=== PATIENT | male | born 1950 ===

== ENCOUNTER 2018-06-14 22:12 | Inpatient (IN) | payer BC, MEDICARE ==
[2018-06-14 22:12] VITALS: BMI 23.6
--- NOTE | 2018-06-14 22:29 | C.PDOC ---
History Of Present Illness 68 year old male with a PMHx of diabetes presents to the ED accompanied by son, for evaluation of dizziness for 3 days. Patient reports feeling dizzy when he stands up, which improves at rest. He also complains of a dry cough. Denies any fevers, chills, chest pain, SOB, headaches, visual loss, nausea or vomiting. He notes that a few days ago he was dizzy and fell onto his left hip. He has no hip pain or other reported injury. Denies LOC or head trauma. No known sick contacts. No recent travel. Son reports that family has noticed patient becoming confused recently - this morning for example, patient got ready for work however had no work today. Time Seen by Provider: 06/14/18 22:20 Chief Complaint (Nursing): Dizziness/Lightheaded History Per: Patient History/Exam Limitations: no limitations Onset/Duration Of Symptoms: Days (x 3) Current Symptoms Are (Timing): Still Present Activity At Onset Of Symptoms: Exertional Activity Seizure Or Post-ictal Symptoms: None Fall Associated With With Symptoms: Yes, No Injury As Result Of Fall Past Medical History Reviewed: Historical Data, Nursing Documentation, Vital Signs Vital Signs: Last Vital Signs Temp 98.1 F 06/14/18 22:19 Pulse 109 H 06/14/18 22:19 Resp 22 06/14/18 22:19 BP 142/81 06/14/18 22:19 Pulse Ox 96 06/14/18 22:19 - Medical History PMH: Benign Prostatic Hyperplasia, Diabetes, HTN - [facility] Procedures INSERT INDWELLING CATH (06/03/13) SUPRAPUBIC PROSTATECTOMY (06/07/13) Family History: States: Unknown Family Hx - Social History Hx Tobacco Use: No Hx Alcohol Use: No Hx Substance Use: No - Immunization History Hx Tetanus Toxoid Vaccination: Yes Hx Influenza Vaccination: No Hx Pneumococcal Vaccination: No Review Of Systems Except As Marked, All Systems Reviewed And Found Negative. Constitutional: Negative for: Fever, Chills, Sweats Eyes: Negative for: Vision Change Cardiovascular: Negative for: Chest Pain, Palpitations Respiratory: Positive for: Cough. Negative for: Shortness of Breath, Sputum Gastrointestinal: Negative for: Nausea, Vomiting Musculoskeletal: Negative for: Neck Pain, Back Pain Neurological: Positive for: Confusion, Dizziness. Negative for: Weakness, Numbness, Change in Speech, Headache Physical Exam - Physical Exam Appears: Well, Non-toxic, No Acute Distress Skin: Normal Color, Warm Head: Atraumatic, Normacephalic Eye(s): bilateral: Normal Inspection (no nystagmus), PERRL, EOMI Oral Mucosa: Moist Neck: Normal ROM, Supple Chest: Symmetrical Cardiovascular: Rhythm Regular (but Tachycardic), Other (Normal S1, S2) Respiratory: No Accessory Muscle Use, No Rales, Rhonchi (diffuse), No Wheezing Gastrointestinal/Abdominal: Soft, No Tenderness, No Distention Extremity: Bilateral: Atraumatic, No Pedal Edema, Normal ROM (x4) Pulses: Left Dorsalis Pedis: Normal, Right Dorsalis Pedis: Normal Neurological/Psych: Oriented x3, Normal Speech, Normal Cognition, Normal Cranial Nerves (2-12 intact), Normal Motor, Normal Sensation Gait: Steady ED Course And Treatment - Laboratory Results Result Diagrams: 06/14/18 22:53 06/14/18 22:53 ECG: Interpreted By Me, Viewed By Me ECG Rhythm: Sinus Tachycardia Interpretation Of ECG: Normal intervals, normal axis, no ST elevations or d epressions Rate From EC O2 Sat by Pulse Oximetry: 96 (RA) Pulse Ox Interpretation: Normal Medical Decision Making Medical Decision Making: Impression: Dizziness Plan: --Blood work, troponin --Blood culture --Urinalysis --Chest x-ray --1L IV fluids --O2 via nasal cannula Progress/Updates: 23:[address] Youssef, who accepts patient for admission. Disposition Counseled Patient/Family Regarding: Studies Performed, Diagnosis - Disposition Disposition: HOSPITALIZED Disposition Time: 23:47 Condition: STABLE - Clinical Impression Clinical Impression: Dizziness, Pneumonia - Scribe Statement The provider has reviewed the documentation as recorded by the Nickolas Lawrence Provider Attestation: All medical record entries made by the Nickolas were at my direction and personally dictated by me. I have reviewed the chart and agree that the record accurately reflects my personal performance of the history, physical exam, medical decision making, and the department course for this patient. I have also personally directed, reviewed, and agree with the discharge instructions and disposition.
[2018-06-14] MEDS ORDERED: Sodium Chloride 0.9% 1,000 ML IV ONE (22:36)
[2018-06-14] MEDS ORDERED: Sodium Chloride 0.9% 1,000 ML ONE (22:56)
[2018-06-14 23:09] LABS: ALB/GLOB RATIO 1.4 (1.0-2.1); ALBUMIN 4.9 g/dL (3.5-5.0); ALT/SGPT 21 U/L (21-72); AST/SGOT 30 U/L (17-59); BLOOD UREA NITROGEN 15 mg/dL (9-20); CALCIUM 9.2 mg/dl (8.6-10.4); GFR NON-AFRICAN AMERICAN > 60
[2018-06-14 23:12] LABS: BASO % 0.3 % (0.0-2.0); HEMOGLOBIN 16.2 g/dL (12.0-18.0); LYMPH # 1.1 K/uL (1.0-4.3); LYMPH % 9.1 % (20.0-40.0); MEAN CELL VOLUME 90.8 fL (80.0-94.0); MEAN CORPUSCULAR HEMOGLOBIN 31.6 pg (27.0-31.0); MEAN CORPUSCULAR HGB CONC 34.8 g/dL (33.0-37.0); MEAN PLATELET VOLUME 8.4 fL (7.2-11.7); MONO # 1.5 K/uL (0.0-0.8); MONO % 12.3 % (0.0-10.0); NEUT # 9.3 K/uL (1.8-7.0); NEUT % 78.3 % (50.0-75.0); NRBC % 0.1 % (0.0-2.0); PLATELET COUNT 274 K/uL (130-400); RBC 5.11 Mil/uL (4.40-5.90); RED CELL DISTRIBUTION WIDTH 12.9 % (11.5-14.5); WHITE BLOOD COUNT 11.9 K/uL (4.8-10.8)
[2018-06-14 23:23] LABS: PLATELET ESTIMATE NORMAL (NORMAL)
[2018-06-14 23:35] LABS: ANISOCYTOSIS SLIGHT; BANDS 9 % (0-2); HYPOCHROMIC SLIGHT; LYMPHOCYTE 9 % (20-40); MONOCYTE 10 % (0-10); NEUTROPHIL 72 % (50-75); POIKILOCYTOSIS SLIGHT; TOTAL CELLS COUNTED 100
[2018-06-14 23:36] LABS: HYPERSEGMENTATION PRESENT; LARGE PLATELETS PRESENT; SMUDGE CELLS PRESENT; SPHEROCYTES SLIGHT
[2018-06-14] MEDS ORDERED: Azithromycin 500mg/250ML NS 500 MG/250 ML BAG IVPB STA (23:43)
[2018-06-15] MEDS ORDERED: Azithromycin 500mg/250ML NS 500 MG/250 ML BAG IVPB ONE (00:16)
[2018-06-15] MEDS ORDERED: cefTRIAXone IV 1 gm in Dextros 50 ML IVPB STA (00:16)
[2018-06-15] MEDS ORDERED: Dextrose 50% SYRINGE Inj (50 ml) IV PRN (00:18)
[2018-06-15] MEDS ORDERED: Glucagon Recombinant 1 mg Inj IM PRN (00:18)
[2018-06-15] MEDS ORDERED: Albuterol-Ipratrop 3 mg / 0.5 (3 ml) UD INH PRN (00:20)
[2018-06-15] MEDS ORDERED: Promethazine 6.25 MG/5 ML CUP PO PRN (00:20)
[2018-06-15] MEDS: Azithromycin 500 MG in Sodium Chloride 0.9% 250 ML IVPB SCH ×2 (00:44→23:57)
[2018-06-15] MEDS: (Novolog) Insulin Aspart, Recombinant 100 u/ml 10 ml vial SC SCH ×4 (07:40→21:34)
--- NOTE | 2018-06-15 08:27 | CP.PCM.HP ---
History of Present Illness - History of Present Illness History of Present Illness: Chief complaint: Cough and wheezing HPI: 68-year-old male with a history of diabetes came to the emergency room with the symptoms of dizziness for 3 days duration. He is started feeling dizzy while he standing up, and sometimes even at rest it started having. Patient also had episodes of dry cough. Chills noted. He denied any fever, no shortness of breath. Denies any headache. While he was in the emergency room patient was also having episode of high blood pressure and tachycardia. Patient is very compliant with the medications. Past medical history: BPH, diabetes and hypertension Allergy no known drug allergy Personal history: Patient used to be a smoker in the past. Denies any alcohol. Lives with family members. Surgical history none Family history significant for high blood pressure and heart disease Review of system: Patient is having some headache. Minimal dry cough noted. Dizziness present. Low blood sugar this morning noted. No chest pain. On examination: Vital signs are stable otherwise. Mild tachycardia noted. Saturation is 93% in room air Chest good air entry No wheezing noted Regular heart sounds noted Abdomen soft. 1+ pedal edema bilaterally in the legs noted. No calf tenderness noted Patient's labs reviewed Elevated WBC noted Chemistries normal. Blood sugar is on the low side EKG nonspecific tachycardia noted Chest x-ray left lower lung atelectatic changes Assessment and recommendation: 68-year-old male with a history of diabetes hypertension high cholesterol. Admitted with dizziness and tachycardia. Underlying DVT PE cannot be ruled out. Suggested CT scan of the chest with IV contrast Presumptive diagnosis of CAP, on antibiotic. DVT and GI prophylaxis. Glucose monitoring. Neurological, cardiology evaluation and will follow the patient Present on Admission - Present on Admission Any Indicators Present on Admission: No History of DVT/PE: No History of Uncontrolled Diabetes: No Urinary Catheter: No Decubitus Ulcer Present: No Past Patient History - Past Medical History & Family History Past Medical History?: Yes - Past Social History Smoking Status: Never Smoked - CARDIAC Hx Hypertension: Yes - PULMONARY Hx Respiratory Disorders: No - NEUROLOGICAL Hx Neurological Disorder: No - HEENT Hx HEENT Problems: No - RENAL Hx Chronic Kidney Disease: No - ENDOCRINE/METABOLIC Hx Endocrine Disorders: Yes Hx Diabetes Mellitus Type 2: Yes - HEMATOLOGICAL/ONCOLOGICAL Hx Blood Disorders: No - INTEGUMENTARY Hx Dermatological Problems: No - MUSCULOSKELETAL/RHEUMATOLOGICAL Hx Musculoskeletal Disorders: Yes Hx Falls: Yes - GASTROINTESTINAL Hx Gastrointestinal Disorders: No - GENITOURINARY/GYNECOLOGICAL Hx Genitourinary Disorders: No - PSYCHIATRIC Hx Substance Use: No - SURGICAL HISTORY Hx Surgeries: Yes Other/Comment: prostate - ANESTHESIA Hx Anesthesia: Yes Hx Anesthesia Reactions: No Hx Malignant Hyperthermia: No Has any member of the family had a problem w/ anesthesia?: No Meds Allergies/Adverse Reactions: Allergies Allergy/AdvReac Type Severity Reaction Status Date / Time No Known Allergies Allergy Verified 06/14/18 22:24 Results - Vital Signs Recent Vital Signs: Last Vital Signs Temp 97.8 F 06/15/18 07:00 Pulse 82 06/15/18 07:00 Resp 20 06/15/18 07:00 BP 134/77 06/15/18 07:00 Pulse Ox 96 06/15/18 07:00 - Labs Result Diagrams: 06/14/18 22:53 06/14/18 22:53 Labs: Laboratory Results - last 24 hr 06/14/18 06/14/18 06/14/18 22:16 22:53 22:53 WBC 11.9 H RBC 5.11 Hgb 16.2 D Hct 46.4 MCV 90.8 MCH 31.6 H MCHC 34.8 RDW 12.9 Plt Count 274 MPV 8.4 Neut % (Auto) 78.3 H Lymph % (Auto) 9.1 L [place] % (Auto) 12.3 H Eos % (Auto) 0.0 Baso % (Auto) 0.3 Neut # (Auto) 9.3 H Lymph # (Auto) 1.1 [place] # (Auto) 1.5 H Eos # (Auto) 0.0 Baso # (Auto) 0.0 Neutrophils % (Manual) 72 Band Neutrophils % 9 H Lymphocytes % (Manual) 9 L Monocytes % (Manual) 10 Hypersegmented Polys Present Smudge Cells Present Platelet Estimate Normal Large Platelets Present Hypochromasia (manual) Slight Poikilocytosis (manual Slight Anisocytosis (manual) Slight Spherocytes Slight Sodium 137 Potassium 4.0 Chloride 100 Carbon Dioxide 26 Anion Gap 16 BUN 15 Creatinine 0.8 Est GFR ( Amer) > 60 Est GFR (Non-Af Amer) > 60 POC Glucose (mg/dL) 107 Random Glucose 111 H D Calcium 9.2 Total Bilirubin 0.8 AST 30 ALT 21 D Alkaline Phosphatase 51 Troponin I < 0.0120 Total Protein 8.2 Albumin 4.9 Globulin 3.4 Albumin/Globulin Ratio 1.4 06/15/18 06/15/18 06/15/18 06:53 06:55 07:17 WBC RBC Hgb Hct MCV MCH MCHC RDW Plt Count MPV Neut % (Auto) Lymph % (Auto) [place] % (Auto) Eos % (Auto) Baso % (Auto) Neut # (Auto) Lymph # (Auto) [place] # (Auto) Eos # (Auto) Baso # (Auto) Neutrophils % (Manual) Band Neutrophils % Lymphocytes % (Manual) Monocytes % (Manual) Hypersegmented Polys Smudge Cells Platelet Estimate Large Platelets Hypochromasia (manual) Poikilocytosis (manual Anisocytosis (manual) Spherocytes Sodium Potassium Chloride Carbon Dioxide Anion Gap BUN Creatinine Est GFR ( Amer) Est GFR (Non-Af Amer) POC Glucose (mg/dL) 57 L 57 L 87 Random Glucose Calcium Total Bilirubin AST ALT Alkaline Phosphatase Troponin I Total Protein Albumin Globulin Albumin/Globulin Ratio
[2018-06-15] MEDS ORDERED: Dextrose 5%/0.9% NS 1,000 ML IV ONE (09:00)
--- NOTE | 2018-06-15 09:09 | RAD ---
Date of service: 06/14/2018 HISTORY: Pneumonia COMPARISON: Portable chest 06/09/2013. TECHNIQUE: Chest PA and lateral FINDINGS: LUNGS: Diminishing medial basilar airspace disease. Linear atelectasis identified in the medial left base. PLEURA: No significant pleural effusion identified. No pneumothorax apparent. CARDIOVASCULAR: No aortic atherosclerotic calcification present. Normal cardiac size. No pulmonary vascular congestion. OSSEOUS STRUCTURES: No significant abnormalities. VISUALIZED UPPER ABDOMEN: Normal. OTHER FINDINGS: None. IMPRESSION: Diminishing airspace disease at the right base with limited remaining at the right. Linear atelectasis is increased at the left base medially.
[2018-06-15] MEDS ORDERED: Iodixanol 320 MG/ML 100 ML BOTTLE IV ONE (09:13)
--- NOTE | 2018-06-15 09:38 | CT ---
Date of service: 06/15/2018 PROCEDURE: CT HEAD WITHOUT CONTRAST. HISTORY: dizziness COMPARISON: None available. TECHNIQUE: Axial computed tomography images were obtained through the head/brain without intravenous contrast. Radiation dose: Total exam DLP = 922.45 mGy-cm. This CT exam was performed using one or more of the following dose reduction techniques: Automated exposure control, adjustment of the mA and/or kV according to patient size, and/or use of iterative reconstruction technique. FINDINGS: HEMORRHAGE: No intracranial hemorrhage. BRAIN: No mass effect or edema. Scattered focal lucencies in the subcortical and periventricular white matter suggestive for chronic microvascular ischemic change. Left basal ganglia lacunar infarct. Cerebral and cerebellar atrophy. VENTRICLES: Unremarkable. No hydrocephalus. CALVARIUM: Unremarkable. PARANASAL SINUSES: Mild mucosal thickening of the ethmoid air cells. Mild mucosal thickening of the left maxillary sinus. MASTOID AIR CELLS: Unremarkable as visualized. No inflammatory changes. OTHER FINDINGS: None. IMPRESSION: Chronic microvascular ischemic changes. Left basal ganglia lacunar infarct. Cerebral and cerebellar atrophy. Sinus mucosal disease as above. If symptoms persists, consider correlation with MRI.
[2018-06-15 11:26] LABS: INR 1.2; PROTHROMBIN TIME 12.7 SECONDS (9.7-12.2)
[2018-06-15 11:40] LABS: CK-MB 1.46 ng/mL (0.0-3.38)
--- NOTE | 2018-06-15 12:43 | CT ---
Date of service: 06/15/2018 CTA chest PE protocol Indication: Pneumonia Technique: Contiguous axial images were obtained through the chest with intravenous contrast enhancement. Sagittal and coronal reconstructions were generated and reviewed. This CT exam was performed using 1 or more of the following dose reduction techniques: Automated exposure control, adjustment of the MAA and/or kV according to patient size, and/or use of iterative reconstruction technique. IV contrast: 100 mL Visipaque 320 IV Radiation dose (DLP): 469.42 MGy-cm. Comparison: Chest x-ray performed 06/14/18 Findings: Visualized portions of the inferior thyroid gland appear heterogeneous. The mediastinal and hilar vascular structures appear within normal limits. Cardiomegaly. Coronary artery calcifications. Atherosclerotic calcifications of the aorta. No large central or segmental pulmonary embolus evident. Subsegmental vessels cannot be adequately assessed. Patchy bilateral infiltrates. No pleural effusion. No pneumothorax. 3 mm right lower lobe calcified granuloma. Limited visualized portions of the upper abdomen: Bilateral adrenal hypertrophy. Degenerative changes. Impression: No large central or segmental pulmonary embolus. Subsegmental vessels cannot be adequately assessed. Patchy bilateral infiltrates. Heterogeneous appearance of the limited visualized inferior thyroid gland. Bilateral adrenal gland hypertrophy. Additional findings as above.
--- NOTE | 2018-06-15 13:57 | CP.PCM.CON ---
<Taylor Christie - Last Filed: 06/15/18 17:09> History of Present Illness - History of Present Illness History of Present Illness: Cardiology Consult Note for Dr. Oneal: 68 year old male with past medical history of HTN, Diabetes and BPH presented to the ER on 06/14/18 for dizziness. Patient states he was getting home from work when he felt dizzy. He states he was walking up to his apartment and had to hold onto the railing and he fell. He denies hitting his head. He states he picked himself up and went into his apartment. He states when he arrived to his apartment he made himself something to eat. He states he had not eaten anything all day but he had taken his insulin. Patient states this is the first time he had the dizziness. Patient denies chest pain, palpitations, shortness of breath, nausea, vomiting, diarrhea or constipation. Past Medical History: HTN, Diabetes Type II on Insulin, BPH Medications: MAR Allergies: NKDA Family History: HTN and heart disease Social History: quit smoking in 1991 (smoked for 20 years about 1ppd); denies alcohol and illicit drug use; lives with cousin Review of Systems - Constitutional Constitutional: absent: Chills, Fever - EENT Eyes: absent: Blurred Vision Ears: Dizziness - Cardiovascular Cardiovascular: absent: Chest Pain, Chest Pain at Rest, Chest Pain with Activity, Dyspnea, Edema, Leg Edema, Palpitations, Pedal Edema - Respiratory Respiratory: absent: Cough, Dyspnea - Gastrointestinal Gastrointestinal: absent: Constipation, Diarrhea, Heartburn, Vomiting - Genitourinary Genitourinary: absent: Dysuria - Musculoskeletal Musculoskeletal: absent: Numbness, Tingling - Neurological Neurological: Dizziness, Syncope Past Patient History - Past Medical History & Family History Past Medical History?: Yes - Past Social History Smoking Status: Never Smoked - CARDIAC Hx Hypertension: Yes - PULMONARY Hx Respiratory Disorders: No - NEUROLOGICAL Hx Neurological Disorder: No - HEENT Hx HEENT Problems: No - RENAL Hx Chronic Kidney Disease: No - ENDOCRINE/METABOLIC Hx Endocrine Disorders: Yes Hx Diabetes Mellitus Type 2: Yes - HEMATOLOGICAL/ONCOLOGICAL Hx Blood Disorders: No - INTEGUMENTARY Hx Dermatological Problems: No - MUSCULOSKELETAL/RHEUMATOLOGICAL Hx Musculoskeletal Disorders: Yes Hx Falls: Yes - GASTROINTESTINAL Hx Gastrointestinal Disorders: No - GENITOURINARY/GYNECOLOGICAL Hx Genitourinary Disorders: No - PSYCHIATRIC Hx Substance Use: No - SURGICAL HISTORY Hx Surgeries: Yes Other/Comment: prostate - ANESTHESIA Hx Anesthesia: Yes Hx Anesthesia Reactions: No Hx Malignant Hyperthermia: No Has any member of the family had a problem w/ anesthesia?: No Meds Allergies/Adverse Reactions: Allergies Allergy/AdvReac Type Severity Reaction Status Date / Time No Known Allergies Allergy Verified 06/14/18 22:24 - Medications Medications: Current Medications Albuterol/Ipratropium (Duoneb 3 Mg/0.5 Mg (3 Ml) Ud) 3 ml INH RQ8 PRN PRN Reason: cough/wheezing/sob Dextrose (Dextrose 50% Inj) 0 ml IV STAT PRN; Protocol PRN Reason: Hypoglycemia Protocol Dextrose (Glutose 15) 0 gm PO ONCE PRN; Protocol PRN Reason: Hypoglycemia Protocol Famotidine (Pepcid) 20 mg PO DAILY [facility] Last Admin: 06/15/18 10:51 Dose: 20 mg Glucagon (Glucagen Diagnostic Kit) 0 mg IM STAT PRN; Protocol PRN Reason: Hypoglycemia Protocol Heparin Sodium (Porcine) (Heparin) 5,000 units SC Q8 [facility] Last Admin: 06/15/18 05:21 Dose: 5,000 units Azithromycin 500 mg/ Sodium (Chloride) 250 mls @ 250 mls/hr IVPB Q24H JOANN; Protocol Last Admin: 06/15/18 00:44 Dose: 250 mls/hr Ceftriaxone Sodium 1 gm/ (Sodium Chloride) 100 mls @ 100 mls/hr IVPB DAILY [facility]; Protocol Last Admin: 06/15/18 10:51 Dose: 100 mls/hr Dextrose (Dextrose 5% In Water 1000 Ml) 1,000 mls @ 0 mls/hr IV .Q0M PRN; Protocol PRN Reason: Hypoglycemia Protocol Dextrose/Sodium Chloride (Dextrose 5%/0.9% Ns 1000 Ml) 1,000 mls @ 75 mls/hr IV .[id number] ONE Stop: 06/15/18 22:19 Last Admin: 06/15/18 10:56 Dose: 75 mls/hr Influenza Virus Vaccine (Flucelvax Quad [id number] Syr) 60 mcg IM .ONCE ONE Stop: 06/17/18 12:01 Insulin Aspart (Novolog) 0 unit SC ACHS JOANN; Protocol Last Admin: 06/15/18 12:17 Dose: Not Given Pneumococcal Polyvalent Vaccine (Pneumovax 23 Vaccine) 0.5 ml IM .ONCE ONE Stop: 06/17/18 12:01 Promethazine HCl (Phenergan Syrup) 6.25 mg PO Q6 PRN PRN Reason: Cough Physical Exam - Constitutional Appears: Well, Non-toxic, No Acute Distress - Head Exam Head Exam: ATRAUMATIC, NORMAL INSPECTION - Eye Exam Eye Exam: EOMI, Normal appearance - ENT Exam ENT Exam: Mucous Membranes Moist - Respiratory Exam Respiratory Exam: Clear to Auscultation Bilateral, NORMAL BREATHING PATTERN - Cardiovascular Exam Cardiovascular Exam: REGULAR RHYTHM, +S1, +S2 - GI/Abdominal Exam GI & Abdominal Exam: Normal Bowel Sounds, Soft. absent: Tenderness - Extremities Exam Extremities exam: Positive for: normal inspection. Negative for: pedal edema, tenderness - Neurological Exam Neurological exam: Alert, Oriented x3 - Psychiatric Exam Psychiatric exam: Normal Affect, Normal Mood - Skin Skin Exam: Normal Color Results - Vital Signs Recent Vital Signs: Last Vital Signs Temp 97.8 F 06/15/18 07:00 Pulse 75 06/15/18 12:00 Resp 20 06/15/18 07:00 BP 134/77 06/15/18 07:00 Pulse Ox 96 06/15/18 07:00 - Labs Result Diagrams: 06/14/18 22:53 06/14/18 22:53 Labs: Laboratory Results - last 24 hr 06/14/18 06/14/18 06/14/18 22:16 22:53 22:53 WBC 11.9 H RBC 5.11 Hgb 16.2 D Hct 46.4 MCV 90.8 MCH 31.6 H MCHC 34.8 RDW 12.9 Plt Count 274 MPV 8.4 Neut % (Auto) 78.3 H Lymph % (Auto) 9.1 L Coles % (Auto) 12.3 H Eos % (Auto) 0.0 Baso % (Auto) 0.3 Neut # (Auto) 9.3 H Lymph # (Auto) 1.1 Coles # (Auto) 1.5 H Eos # (Auto) 0.0 Baso # (Auto) 0.0 Neutrophils % (Manual) 72 Band Neutrophils % 9 H Lymphocytes % (Manual) 9 L Monocytes % (Manual) 10 Hypersegmented Polys Present Smudge Cells Present Platelet Estimate Normal Large Platelets Present Hypochromasia (manual) Slight Poikilocytosis (manual Slight Anisocytosis (manual) Slight Spherocytes Slight PT INR APTT Sodium 137 Potassium 4.0 Chloride 100 Carbon Dioxide 26 Anion Gap 16 BUN 15 Creatinine 0.8 Est GFR ( Amer) > 60 Est GFR (Non-Af Amer) > 60 POC Glucose (mg/dL) 107 Random Glucose 111 H D Calcium 9.2 Total Bilirubin 0.8 AST 30 ALT 21 D Alkaline Phosphatase 51 Total Creatine Kinase CK-MB (Mass) Troponin I < 0.0120 Total Protein 8.2 Albumin 4.9 Globulin 3.4 Albumin/Globulin Ratio 1.4 06/15/18 06/15/18 06/15/18 06:53 06:55 07:17 WBC RBC Hgb Hct MCV MCH MCHC RDW Plt Count MPV Neut % (Auto) Lymph % (Auto) Coles % (Auto) Eos % (Auto) Baso % (Auto) Neut # (Auto) Lymph # (Auto) Coles # (Auto) Eos # (Auto) Baso # (Auto) Neutrophils % (Manual) Band Neutrophils % Lymphocytes % (Manual) Monocytes % (Manual) Hypersegmented Polys Smudge Cells Platelet Estimate Large Platelets Hypochromasia (manual) Poikilocytosis (manual Anisocytosis (manual) Spherocytes PT INR APTT Sodium Potassium Chloride Carbon Dioxide Anion Gap BUN Creatinine Est GFR ( Amer) Est GFR (Non-Af Amer) POC Glucose (mg/dL) 57 L 57 L 87 Random Glucose Calcium Total Bilirubin AST ALT Alkaline Phosphatase Total Creatine Kinase CK-MB (Mass) Troponin I Total Protein Albumin Globulin Albumin/Globulin Ratio 06/15/18 06/15/18 06/15/18 11:02 11:02 11:24 WBC RBC Hgb Hct MCV MCH MCHC RDW Plt Count MPV Neut % (Auto) Lymph % (Auto) Coles % (Auto) Eos % (Auto) Baso % (Auto) Neut # (Auto) Lymph # (Auto) Coles # (Auto) Eos # (Auto) Baso # (Auto) Neutrophils % (Manual) Band Neutrophils % Lymphocytes % (Manual) Monocytes % (Manual) Hypersegmented Polys Smudge Cells Platelet Estimate Large Platelets Hypochromasia (manual) Poikilocytosis (manual Anisocytosis (manual) Spherocytes PT 12.7 H INR 1.2 APTT 37 H Sodium Potassium Chloride Carbon Dioxide Anion Gap BUN Creatinine Est GFR ( Amer) Est GFR (Non-Af Amer) POC Glucose (mg/dL) 215 H Random Glucose Calcium Total Bilirubin AST ALT Alkaline Phosphatase Total Creatine Kinase 360 H CK-MB (Mass) 1.46 Troponin I < 0.0120 Total Protein Albumin Globulin Albumin/Globulin Ratio Assessment & Plan - Assessment and Plan (Free Text) Assessment: 68 year old male with past medical history of HTN, Diabetes and BPH presented to the ER on 06/14/18 for dizziness. Dizziness possibly secondary to hypoglycemia - Trop x2 negative - f/u Lipid panel ad hA1c - ECHO (06/15/18): reviewed by Dr. Oneal - normal LV function; mild - CT Angio: No large central or segmental pulmonary embolus. - Carotid Doppler: Negative - Head CT: Chronic microvascular ischemic changes. Left basal ganglia lacunar infarct. Cerebral and cerebellar atrophy. - Neuro Team Consulted - Meera Stress Test scheduled for 06/16/18 - NPO after midnight Case discussed with Dr. Jm Christie PGY-2 <Paolo Oneal - Last Filed: 06/15/18 21:55> Meds - Medications Medications: Current Medications Albuterol/Ipratropium (Duoneb 3 Mg/0.5 Mg (3 Ml) Ud) 3 ml INH RQ8 PRN PRN Reason: cough/wheezing/sob Aspirin (Ecotrin) 81 mg PO DAILY [facility] Last Admin: 06/15/18 17:42 Dose: 81 mg Dextrose (Dextrose 50% Inj) 0 ml IV STAT PRN; Protocol PRN Reason: Hypoglycemia Protocol Dextrose (Glutose 15) 0 gm PO ONCE PRN; Protocol PRN Reason: Hypoglycemia Protocol Famotidine (Pepcid) 20 mg PO DAILY [facility] Last Admin: 06/15/18 10:51 Dose: 20 mg Glucagon (Glucagen Diagnostic Kit) 0 mg IM STAT PRN; Protocol PRN Reason: Hypoglycemia Protocol Heparin Sodium (Porcine) (Heparin) 5,000 units SC Q8 [facility] Last Admin: 06/15/18 21:35 Dose: 5,000 units Azithromycin 500 mg/ Sodium (Chloride) 250 mls @ 250 mls/hr IVPB Q24H JOANN; Protocol Last Admin: 06/15/18 00:44 Dose: 250 mls/hr Ceftriaxone Sodium 1 gm/ (Sodium Chloride) 100 mls @ 100 mls/hr IVPB DAILY [facility]; Protocol Last Admin: 06/15/18 10:51 Dose: 100 mls/hr Dextrose (Dextrose 5% In Water 1000 Ml) 1,000 mls @ 0 mls/hr IV .Q0M PRN; Protocol PRN Reason: Hypoglycemia Protocol Dextrose/Sodium Chloride (Dextrose 5%/0.9% Ns 1000 Ml) 1,000 mls @ 75 mls/hr IV .[id number] ONE Stop: 06/15/18 22:19 Last Admin: 06/15/18 10:56 Dose: 75 mls/hr Influenza Virus Vaccine (Flucelvax Quad [id number] Syr) 60 mcg IM .ONCE ONE Stop: 06/17/18 12:01 Insulin Aspart (Novolog) 0 unit SC [facility]; Protocol Last Admin: 06/15/18 21:34 Dose: Not Given Pneumococcal Polyvalent Vaccine (Pneumovax 23 Vaccine) 0.5 ml IM .ONCE ONE Stop: 06/17/18 12:01 Promethazine HCl (Phenergan Syrup) 6.25 mg PO Q6 PRN PRN Reason: Cough Rosuvastatin Calcium (Crestor) 2.5 mg PO HS [facility] Last Admin: 06/15/18 21:36 Dose: 2.5 mg Results - Vital Signs Recent Vital Signs: Last Vital Signs Temp 99.1 F 06/15/18 15:57 Pulse 80 06/15/18 16:00 Resp 20 06/15/18 15:57 BP 137/75 06/15/18 15:57 Pulse Ox 96 06/15/18 15:57 - Labs Result Diagrams: 06/14/18 22:53 06/14/18 22:53 Labs: Laboratory Results - last 24 hr 06/14/18 06/14/18 06/14/18 22:16 22:53 22:53 WBC 11.9 H RBC 5.11 Hgb 16.2 D Hct 46.4 MCV 90.8 MCH 31.6 H MCHC 34.8 RDW 12.9 Plt Count 274 MPV 8.4 Neut % (Auto) 78.3 H Lymph % (Auto) 9.1 L Coles % (Auto) 12.3 H Eos % (Auto) 0.0 Baso % (Auto) 0.3 Neut # (Auto) 9.3 H Lymph # (Auto) 1.1 Coles # (Auto) 1.5 H Eos # (Auto) 0.0 Baso # (Auto) 0.0 Neutrophils % (Manual) 72 Band Neutrophils % 9 H Lymphocytes % (Manual) 9 L Monocytes % (Manual) 10 Hypersegmented Polys Present Smudge Cells Present Platelet Estimate Normal Large Platelets Present Hypochromasia (manual) Slight Poikilocytosis (manual Slight Anisocytosis (manual) Slight Spherocytes Slight PT INR APTT Sodium 137 Potassium 4.0 Chloride 100 Carbon Dioxide 26 Anion Gap 16 BUN 15 Creatinine 0.8 Est GFR ( Amer) > 60 Est GFR (Non-Af Amer) > 60 POC Glucose (mg/dL) 107 Random Glucose 111 H D Calcium 9.2 Total Bilirubin 0.8 AST 30 ALT 21 D Alkaline Phosphatase 51 Total Creatine Kinase CK-MB (Mass) Troponin I < 0.0120 Total Protein 8.2 Albumin 4.9 Globulin 3.4 Albumin/Globulin Ratio 1.4 06/15/18 06/15/18 06/15/18 06:53 06:55 07:17 WBC RBC Hgb Hct MCV MCH MCHC RDW Plt Count MPV Neut % (Auto) Lymph % (Auto) Coles % (Auto) Eos % (Auto) Baso % (Auto) Neut # (Auto) Lymph # (Auto) Coles # (Auto) Eos # (Auto) Baso # (Auto) Neutrophils % (Manual) Band Neutrophils % Lymphocytes % (Manual) Monocytes % (Manual) Hypersegmented Polys Smudge Cells Platelet Estimate Large Platelets Hypochromasia (manual) Poikilocytosis (manual Anisocytosis (manual) Spherocytes PT INR APTT Sodium Potassium Chloride Carbon Dioxide Anion Gap BUN Creatinine Est GFR ( Amer) Est GFR (Non-Af Amer) POC Glucose (mg/dL) 57 L 57 L 87 Random Glucose Calcium Total Bilirubin AST ALT Alkaline Phosphatase Total Creatine Kinase CK-MB (Mass) Troponin I Total Protein Albumin Globulin Albumin/Globulin Ratio 06/15/18 06/15/18 06/15/18 11:02 11:02 11:24 WBC RBC Hgb Hct MCV MCH MCHC RDW Plt Count MPV Neut % (Auto) Lymph % (Auto) Coles % (Auto) Eos % (Auto) Baso % (Auto) Neut # (Auto) Lymph # (Auto) Coles # (Auto) Eos # (Auto) Baso # (Auto) Neutrophils % (Manual) Band Neutrophils % Lymphocytes % (Manual) Monocytes % (Manual) Hypersegmented Polys Smudge Cells Platelet Estimate Large Platelets Hypochromasia (manual) Poikilocytosis (manual Anisocytosis (manual) Spherocytes PT 12.7 H INR 1.2 APTT 37 H Sodium Potassium Chloride Carbon Dioxide Anion Gap BUN Creatinine Est GFR ( Amer) Est GFR (Non-Af Amer) POC Glucose (mg/dL) 215 H Random Glucose Calcium Total Bilirubin AST ALT Alkaline Phosphatase Total Creatine Kinase 360 H CK-MB (Mass) 1.46 Troponin I < 0.0120 Total Protein Albumin Globulin Albumin/Globulin Ratio 06/15/18 06/15/18 06/15/18 16:22 16:47 21:08 WBC RBC Hgb Hct MCV MCH MCHC RDW Plt Count MPV Neut % (Auto) Lymph % (Auto) Coles % (Auto) Eos % (Auto) Baso % (Auto) Neut # (Auto) Lymph # (Auto) Coles # (Auto) Eos # (Auto) Baso # (Auto) Neutrophils % (Manual) Band Neutrophils % Lymphocytes % (Manual) Monocytes % (Manual) Hypersegmented Polys Smudge Cells Platelet Estimate Large Platelets Hypochromasia (manual) Poikilocytosis (manual Anisocytosis (manual) Spherocytes PT INR APTT Sodium Potassium Chloride Carbon Dioxide Anion Gap BUN Creatinine Est GFR ( Amer) Est GFR (Non-Af Amer) POC Glucose (mg/dL) 128 H 273 H Random Glucose Calcium Total Bilirubin AST ALT Alkaline Phosphatase Total Creatine Kinase 399 H CK-MB (Mass) 1.98 Troponin I < 0.0120 Total Protein Albumin Globulin Albumin/Globulin Ratio Assessment & Plan - Assessment and Plan (Free Text) Assessment: Patient seen and examined personally by me. Plan of care d/w the medical equipment repairer and as documented
[2018-06-15] MEDS ORDERED: Gadodiamide 287 mg/ml 20 ml IV ONE (14:25)
[2018-06-15 17:16] LABS: CK-MB 1.98 ng/mL (0.0-3.38)
--- NOTE | 2018-06-15 20:25 | CARD ---
APPROVED REPORT Date of service: 06/15/2018 EXAM: Two-dimensional and M-mode echocardiogram with Doppler and color Doppler. Other Information Quality : GoodRhythm : INDICATION Dizziness and Vertigo RISK FACTORS Hypertension 2D DIMENSIONS IVSd1.5 (0.7-1.1cm)Aortic Root (2D)2.9 (2.0-3.7cm) LVDd3.4 (3.9-5.9cm)PWd1.0 (0.7-1.1cm) LA Twxnfm41 (18-58mL)LVDs2.5 (2.5-4.0cm) FS (%) 25.9 %LVEF (%)52.0 (>50%) Aortic Valve AoV Peak Wbrfurax562.7cm/Lisandro Peak GR.9mmHg Mitral Valve MV E Jbfxodxz43.9cm/sMV A Tsintozn763.9cm/sE/A ratio0.6 TDI Lateral E' Peak V10.03cm/sMedial E' Peak V6.61cm/sE/Lateral E'7.0 E/Medial E'10.6 Tricuspid Valve TR Peak Crpznies691fb/sTR Peak Gr.40ftUkMUBQ47bwOe LEFT VENTRICLE The left ventricle is normal size. There is moderate concentric left ventricular hypertrophy. Left ventricle systolic function is normal. The Ejection Fraction is 65-70%. There is normal LV segmental wall motion. Transmitral Doppler flow pattern is Grade I-abnormal relaxation pattern. There is no ventricular septal defect visualized. RIGHT VENTRICLE The right ventricle is normal size. The right ventricular systolic function is normal. ATRIA The left atrium is mildly dilated. The right atrium size is normal. AORTIC VALVE The aortic valve is mildly to moderately sclerotic. The aortic valve is tri-cuspid. No aortic regurgitation is present. There is no aortic valvular stenosis. MITRAL VALVE Mitral annular calcification is mild. There is no evidence of mitral valve prolapse. There is no mitral valve regurgitation noted. TRICUSPID VALVE The tricuspid valve is normal in structure. There is trace tricuspid regurgitation. Right ventricular systolic pressure is estimated at less than 30 mmHg. There is no pulmonary hypertension. PULMONIC VALVE The pulmonary valve is normal in structure. There is trace pulmonic valvular regurgitation. GREAT VESSELS The aortic root is normal in size. The ascending aorta is normal in size. The IVC is normal in size and collapses >50% with inspiration. PERICARDIAL EFFUSION There is no pericardial effusion. <Conclusion> There is moderate concentric left ventricular hypertrophy. Left ventricle systolic function is normal. The Ejection Fraction is 65-70%. Transmitral Doppler flow pattern is Grade I-abnormal relaxation pattern.
--- NOTE | 2018-06-15 20:46 | CARD ---
APPROVED REPORT Date of service: 06/14/2018 EKG Measurement Heart [id number] <Conclusion> Sinus tachycardia Possible Left atrial enlargement Possible Anterior infarct, age undetermined Abnormal ECG
[2018-06-15] MEDS: Rosuvastatin Calcium 2.5 mg Tab PO SCH (21:36)
--- NOTE | 2018-06-16 07:00 | CP.PCM.CON ---
History of Present Illness - History of Present Illness History of Present Illness: CONSULTATION DICTATED EPISODE OF VERTIGO AND FALL WITH TRANSIENT LOC VBI/?? SEIZURE SEVERE NEUROPATHY MRI BRAIN SMALL VESSEL DISEASE WITH CEREBRAL > CERBELLAR ATROPY VITAMINS & PT DIABETIC CONTROL ABSTINANCE ETOH ANTIPLATELETS Past Patient History - Past Medical History & Family History Past Medical History?: Yes - Past Social History Smoking Status: Never Smoked - CARDIAC Hx Hypertension: Yes - PULMONARY Hx Respiratory Disorders: No - NEUROLOGICAL Hx Neurological Disorder: No - HEENT Hx HEENT Problems: No - RENAL Hx Chronic Kidney Disease: No - ENDOCRINE/METABOLIC Hx Endocrine Disorders: Yes Hx Diabetes Mellitus Type 2: Yes - HEMATOLOGICAL/ONCOLOGICAL Hx Blood Disorders: No - INTEGUMENTARY Hx Dermatological Problems: No - MUSCULOSKELETAL/RHEUMATOLOGICAL Hx Musculoskeletal Disorders: Yes Hx Falls: Yes - GASTROINTESTINAL Hx Gastrointestinal Disorders: No - GENITOURINARY/GYNECOLOGICAL Hx Genitourinary Disorders: No - PSYCHIATRIC Hx Substance Use: No - SURGICAL HISTORY Hx Surgeries: Yes Other/Comment: prostate - ANESTHESIA Hx Anesthesia: Yes Hx Anesthesia Reactions: No Hx Malignant Hyperthermia: No Has any member of the family had a problem w/ anesthesia?: No Meds Allergies/Adverse Reactions: Allergies Allergy/AdvReac Type Severity Reaction Status Date / Time No Known Allergies Allergy Verified 06/14/18 22:24 - Medications Medications: Current Medications Albuterol/Ipratropium (Duoneb 3 Mg/0.5 Mg (3 Ml) Ud) 3 ml INH RQ8 PRN PRN Reason: cough/wheezing/sob Aspirin (Ecotrin) 81 mg PO DAILY [facility] Last Admin: 06/15/18 17:42 Dose: 81 mg Cyanocobalamin (Vitamin B12 1000 Mcg/Ml Inj) 1,000 mcg IM DAILY [facility] Stop: 06/19/18 23:59 Dextrose (Dextrose 50% Inj) 0 ml IV STAT PRN; Protocol PRN Reason: Hypoglycemia Protocol Dextrose (Glutose 15) 0 gm PO ONCE PRN; Protocol PRN Reason: Hypoglycemia Protocol Famotidine (Pepcid) 20 mg PO DAILY [facility] Last Admin: 06/15/18 10:51 Dose: 20 mg Glucagon (Glucagen Diagnostic Kit) 0 mg IM STAT PRN; Protocol PRN Reason: Hypoglycemia Protocol Heparin Sodium (Porcine) (Heparin) 5,000 units SC Q8 [facility] Last Admin: 06/16/18 05:42 Dose: 5,000 units Azithromycin 500 mg/ Sodium (Chloride) 250 mls @ 250 mls/hr IVPB Q24H JOANN; Protocol Last Admin: 06/15/18 23:57 Dose: 250 mls/hr Ceftriaxone Sodium 1 gm/ (Sodium Chloride) 100 mls @ 100 mls/hr IVPB DAILY [facility]; Protocol Last Admin: 06/15/18 10:51 Dose: 100 mls/hr Dextrose (Dextrose 5% In Water 1000 Ml) 1,000 mls @ 0 mls/hr IV .Q0M PRN; Protocol PRN Reason: Hypoglycemia Protocol Influenza Virus Vaccine (Flucelvax Quad [id number] Syr) 60 mcg IM .ONCE ONE Stop: 06/17/18 12:01 Insulin Aspart (Novolog) 0 unit SC ACHS JOANN; Protocol Last Admin: 06/15/18 21:34 Dose: Not Given Pneumococcal Polyvalent Vaccine (Pneumovax 23 Vaccine) 0.5 ml IM .ONCE ONE Stop: 06/17/18 12:01 Promethazine HCl (Phenergan Syrup) 6.25 mg PO Q6 PRN PRN Reason: Cough Rosuvastatin Calcium (Crestor) 2.5 mg PO HS [facility] Last Admin: 06/15/18 21:36 Dose: 2.5 mg Thiamine HCl (Vitamin B1 Tab) 100 mg PO DAILY [facility] Results - Vital Signs Recent Vital Signs: Last Vital Signs Temp 99.3 F 06/16/18 05:00 Pulse 98 H 06/16/18 05:00 Resp 20 06/16/18 05:00 BP 120/70 06/16/18 05:00 Pulse Ox 97 06/15/18 23:10 - Labs Result Diagrams: 06/14/18 22:53 06/14/18 22:53 Labs: Laboratory Results - last 24 hr 06/15/18 06/15/18 06/15/18 06:53 06:55 07:17 PT INR APTT POC Glucose (mg/dL) 57 L 57 L 87 Total Creatine Kinase CK-MB (Mass) Troponin I 06/15/18 06/15/18 06/15/18 11:02 11:02 11:24 PT 12.7 H INR 1.2 APTT 37 H POC Glucose (mg/dL) 215 H Total Creatine Kinase 360 H CK-MB (Mass) 1.46 Troponin I < 0.0120 06/15/18 06/15/18 06/15/18 16:22 16:47 21:08 PT INR APTT POC Glucose (mg/dL) 128 H 273 H Total Creatine Kinase 399 H CK-MB (Mass) 1.98 Troponin I < 0.0120 06/16/18 06/16/18 02:10 06:28 PT INR APTT POC Glucose (mg/dL) 180 H 188 H Total Creatine Kinase CK-MB (Mass) Troponin I
[2018-06-16] MEDS ORDERED: Caffeine Citrated **INJ** 20 MG/ML IV ONE (07:35)
[2018-06-16 07:52] LABS: BASO % 0.7 % (0.0-2.0); EOS % 0.4 % (0.0-4.0); LYMPH % 23.5 % (20.0-40.0); MEAN CELL VOLUME 90.2 fL (80.0-94.0); MEAN CORPUSCULAR HEMOGLOBIN 31.3 pg (27.0-31.0); MEAN CORPUSCULAR HGB CONC 34.7 g/dL (33.0-37.0); MEAN PLATELET VOLUME 8.3 fL (7.2-11.7); MONO # 0.4 K/uL (0.0-0.8); MONO % 10.7 % (0.0-10.0); NEUT # 2.7 K/uL (1.8-7.0); NEUT % 64.7 % (50.0-75.0); RBC 4.54 Mil/uL (4.40-5.90); RED CELL DISTRIBUTION WIDTH 13.1 % (11.5-14.5)
[2018-06-16 07:56] LABS: HEMOGLOBIN 14.2 g/dL (12.0-18.0); WHITE BLOOD COUNT 4.1 K/uL (4.8-10.8)
[2018-06-16] MEDS: (Novolog) Insulin Aspart, Recombinant 100 u/ml 10 ml vial SC SCH ×4 (07:59→21:30)
[2018-06-16 08:08] LABS: ALB/GLOB RATIO 1.3 (1.0-2.1); ALBUMIN 3.8 g/dL (3.5-5.0); ALT/SGPT 25 U/L (21-72); AST/SGOT 30 U/L (17-59); BLOOD UREA NITROGEN 7 mg/dL (9-20); CALCIUM 8.2 mg/dl (8.6-10.4); GFR NON-AFRICAN AMERICAN > 60; HDL CHOLESTEROL 25 mg/dL (30-70)
[2018-06-16 08:18] LABS: LDL CHOLESTEROL 74 mg/dL (0-129)
--- NOTE | 2018-06-16 09:22 | CON ---
DATE: 06/16/2018 ATTENDING PHYSICIAN: Ayaz Youssef MD LOCATION: The patient is in room number 650, Bed B. REASON FOR CONSULTATION: Dizziness. CHIEF COMPLAINT: The patient was brought into [facility] following fall with dizziness at home. From neurological point of view, I was called in to evaluate him for further management. HISTORY OF PRESENT ILLNESS: Mr. Ayaan Diaz is a 68-year-old right-handed thinly built male presenting on Friday when he got ready to go to work in his apartment, suddenly, he felt blurred vision, unsteady knees and legs and fall on the floor. He denies hitting his head. However, he admits transient loss of consciousness at that point. No bowel or bladder incontinence. No history of witnessed bitten tongue or bleeding from his mouth. No similar episodes happened in the past. That dizziness was two days and that decided him to come to the hospital on Friday. At present, he denies dizziness. No history of visual or bulbar dysfunction. However, he admits generalized tiredness. PAST MEDICAL HISTORY: Hypertension, diabetes, benign prostate hypertrophy. SOCIAL HISTORY: Denies smoking at present. He quit smoking many years ago. History of alcohol use in the past, not at this moment as per him. FAMILY HISTORY: Heart disease and hypertension. ALLERGIES: NO KNOWN ALLERGIES. REVIEW OF SYSTEMS: Twelve-point system being reviewed. From neuro, dizziness. MEDICATIONS: Heparin, NovoLog, Pepcid, Phenergan, thiamine, B12 supplements. PHYSICAL EXAMINATION: VITAL SIGNS: Blood pressure 120/70 with mean artery pressure of 86, respiratory rate 18, temperature 99.3 with a pulse rate of 98. GENERAL: The patient is awake, alert, and oriented to person, place, and time. Speech is clear. Naming, repetition, fluency, comprehension all within normal. NECK: Supple. No carotid bruits. HEART: Sounds regular. CHEST: Fair air entry. EXTREMITIES: No edema in legs. NEUROLOGIC: Cranial nerve examination: Visual field intact. Pupils reactive to light. Extraocular movements normal. No nystagmus. No facial sensory deficit. No facial asymmetry. Hearing is normal. Tongue is midline. Good gag. Motor examination: Outstretched hand with eyes closed, no drift noted. Mild sensory tremor noted. No fasciculation at rest. Deep tendon reflexes biceps, brachialis, triceps 1+. Both knees are absent. Both ankles are absent. Plantars are downgoing. Sensory examination: Severe small fiber neuropathy. Position sense is intact. Coordination: Finger-nose test is intact. Gait is deferred at this time. CONCLUSION: 1. Mr. Ayaan Diaz as per neurological examination presenting with possible vertebrobasilar insufficiency, probably due to his underlying diabetes mellitus and hypertension. However, transient loss of consciousness, may be nonconvulsive seizures, this should be ruled out. 2. 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 3. 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 RECOMMENDATIONS: 1. Carotid Doppler. 2. Electroencephalogram to rule out any paroxysmal activities. 3. Diabetic control. 4. Out of bed and physical therapy. 5. Thiamine and B12 supplements. 6. The patient was placed with aspirin, can be switched to Plavix. The patient will be followed while he is in the hospital. Gilbert Petit MD
--- NOTE | 2018-06-16 09:49 | CP.PCM.PN ---
<Taylor Christie - Last Filed: 06/16/18 18:54> Subjective - Date & Time of Evaluation Date of Evaluation: 06/16/18 Time of Evaluation: 08:00 - Subjective Subjective: Cardiology Progress Note for Dr. Oneal: Patient was seen and examined at bedside in the AM. Patient states he is feeling well. Patient denies chest pain, palpitations, shortness of breath, diarrhea, constipation, fever, chills, nausea or vomiting. Grandson is at bedside who states he flew in from [place] to see his grandfather. He states the family member who lives with his grandfather states his grandfather was trying to go to work at 9pm at night. He states his grandfather was confused as he normally does not work at night. His grandson states he would like to bring his grandfather to live with him and his family in [place] once he is discharged . Objective - Vital Signs/Intake and Output Vital Signs (last 24 hours): Temp Pulse Resp BP Pulse Ox 99.2 F 79 18 135/75 96 06/16/18 07:00 06/16/18 07:00 06/16/18 07:00 06/16/18 07:00 06/16/18 07:00 Intake and Output: 06/16/18 06/16/18 06:59 18:59 Intake Total 450 Balance 450 - Medications Medications: Current Medications Albuterol/Ipratropium (Duoneb 3 Mg/0.5 Mg (3 Ml) Ud) 3 ml INH RQ8 PRN PRN Reason: cough/wheezing/sob Clopidogrel Bisulfate (Plavix) 75 mg PO DAILY [facility] Cyanocobalamin (Vitamin B12 1000 Mcg/Ml Inj) 1,000 mcg IM DAILY [facility] Stop: 06/19/18 23:59 Dextrose (Dextrose 50% Inj) 0 ml IV STAT PRN; Protocol PRN Reason: Hypoglycemia Protocol Dextrose (Glutose 15) 0 gm PO ONCE PRN; Protocol PRN Reason: Hypoglycemia Protocol Famotidine (Pepcid) 20 mg PO DAILY [facility] Last Admin: 06/15/18 10:51 Dose: 20 mg Glucagon (Glucagen Diagnostic Kit) 0 mg IM STAT PRN; Protocol PRN Reason: Hypoglycemia Protocol Heparin Sodium (Porcine) (Heparin) 5,000 units SC Q8 [facility] Last Admin: 06/16/18 05:42 Dose: 5,000 units Azithromycin 500 mg/ Sodium (Chloride) 250 mls @ 250 mls/hr IVPB Q24H [facility]; Protocol Last Admin: 06/15/18 23:57 Dose: 250 mls/hr Ceftriaxone Sodium 1 gm/ (Sodium Chloride) 100 mls @ 100 mls/hr IVPB DAILY [facility]; Protocol Last Admin: 06/15/18 10:51 Dose: 100 mls/hr Dextrose (Dextrose 5% In Water 1000 Ml) 1,000 mls @ 0 mls/hr IV .Q0M PRN; Protocol PRN Reason: Hypoglycemia Protocol Influenza Virus Vaccine (Flucelvax Quad 1363-2503 Syr) 60 mcg IM .ONCE ONE Stop: 06/17/18 12:01 Insulin Aspart (Novolog) 0 unit SC ACHS [facility]; Protocol Last Admin: 06/16/18 07:59 Dose: Not Given Pneumococcal Polyvalent Vaccine (Pneumovax 23 Vaccine) 0.5 ml IM .ONCE ONE Stop: 06/17/18 12:01 Promethazine HCl (Phenergan Syrup) 6.25 mg PO Q6 PRN PRN Reason: Cough Rosuvastatin Calcium (Crestor) 2.5 mg PO HS [facility] Last Admin: 06/15/18 21:36 Dose: 2.5 mg Thiamine HCl (Vitamin B1 Tab) 100 mg PO DAILY [facility] - Labs Labs: 06/16/18 07:43 06/16/18 07:43 PT 12.7 SECONDS (9.7-12.2) H 06/15/18 11:02 INR 1.2 06/15/18 11:02 APTT 37 SECONDS (21-34) H 06/15/18 11:02 - Constitutional Appears: No Acute Distress - Head Exam Head Exam: ATRAUMATIC, NORMAL INSPECTION - Eye Exam Eye Exam: EOMI, Normal appearance - ENT Exam ENT Exam: Mucous Membranes Moist - Respiratory Exam Respiratory Exam: Clear to Ausculation Bilateral, NORMAL BREATHING PATTERN - Cardiovascular Exam Cardiovascular Exam: REGULAR RHYTHM, +S1, +S2 - GI/Abdominal Exam GI & Abdominal Exam: Soft, Normal Bowel Sounds. absent: Tenderness - Extremities Exam Extremities Exam: Normal Inspection - Neurological Exam Neurological Exam: Alert, Awake, Oriented x3 - Psychiatric Exam Psychiatric exam: Normal Affect Assessment and Plan - Assessment and Plan (Free Text) Assessment: 68 year old male with past medical history of HTN, Diabetes and BPH presented to the ER on 06/14/18 for dizziness. Dizziness - resolved possibly secondary to hypoglycemia - Trop x3 negative - Lipid panel: Total Cholesterol 99; LDL 74; HDL 25; Triglycerides 106; hA1c 8.4 - ECHO (06/15/18): reviewed by Dr. Oneal - normal LV function; moderate concentric left ventricular hypertrophy - CT Angio: No large central or segmental pulmonary embolus. - Carotid Doppler: Negative - Neuro Team Consulted - Meera Stress Test: Reviewed by Dr. Oneal - Normal; EF 71-76% Case discussed with Dr. Jm Christie PGY-2 <Paolo Oneal - Last Filed: 06/16/18 22:37> Objective - Vital Signs/Intake and Output Vital Signs (last 24 hours): Temp Pulse Resp BP Pulse Ox 99.2 F 88 20 137/74 96 06/16/18 16:00 06/16/18 16:33 06/16/18 16:00 06/16/18 16:00 06/16/18 16:00 Intake and Output: 06/16/18 06/17/18 18:59 06:59 Intake Total 350 Balance 350 - Medications Medications: Current Medications Albuterol/Ipratropium (Duoneb 3 Mg/0.5 Mg (3 Ml) Ud) 3 ml INH RQ8 PRN PRN Reason: cough/wheezing/sob Clopidogrel Bisulfate (Plavix) 75 mg PO DAILY [facility] Last Admin: 06/16/18 11:02 Dose: 75 mg Cyanocobalamin (Vitamin B12 1000 Mcg/Ml Inj) 1,000 mcg IM DAILY [facility] Stop: 06/19/18 23:59 Last Admin: 06/16/18 11:02 Dose: 1,000 mcg Dextrose (Dextrose 50% Inj) 0 ml IV STAT PRN; Protocol PRN Reason: Hypoglycemia Protocol Dextrose (Glutose 15) 0 gm PO ONCE PRN; Protocol PRN Reason: Hypoglycemia Protocol Famotidine (Pepcid) 20 mg PO DAILY [facility] Last Admin: 06/16/18 11:02 Dose: 20 mg Glucagon (Glucagen Diagnostic Kit) 0 mg IM STAT PRN; Protocol PRN Reason: Hypoglycemia Protocol Heparin Sodium (Porcine) (Heparin) 5,000 units SC Q8 [facility] Last Admin: 06/16/18 21:44 Dose: 5,000 units Azithromycin 500 mg/ Sodium (Chloride) 250 mls @ 250 mls/hr IVPB Q24H [facility]; Protocol Last Admin: 06/15/18 23:57 Dose: 250 mls/hr Ceftriaxone Sodium 1 gm/ (Sodium Chloride) 100 mls @ 100 mls/hr IVPB DAILY [facility]; Protocol Last Admin: 06/16/18 11:01 Dose: 100 mls/hr Dextrose (Dextrose 5% In Water 1000 Ml) 1,000 mls @ 0 mls/hr IV .Q0M PRN; Protocol PRN Reason: Hypoglycemia Protocol Influenza Virus Vaccine (Flucelvax Quad 9168-3290 Syr) 60 mcg IM .ONCE ONE Stop: 06/17/18 12:01 Insulin Aspart (Novolog) 0 unit SC ACHS [facility]; Protocol Last Admin: 06/16/18 21:30 Dose: Not Given Levothyroxine Sodium (Synthroid) 25 mcg PO DAILY@0630 [facility] Pneumococcal Polyvalent Vaccine (Pneumovax 23 Vaccine) 0.5 ml IM .ONCE ONE Stop: 06/17/18 12:01 Promethazine HCl (Phenergan Syrup) 6.25 mg PO Q6 PRN PRN Reason: Cough Rosuvastatin Calcium (Crestor) 2.5 mg PO HS [facility] Last Admin: 06/16/18 21:44 Dose: 2.5 mg Thiamine HCl (Vitamin B1 Tab) 100 mg PO DAILY [facility] Last Admin: 06/16/18 11:02 Dose: 100 mg - Labs Labs: 06/16/18 07:43 06/16/18 07:43 PT 12.7 SECONDS (9.7-12.2) H 06/15/18 11:02 INR 1.2 06/15/18 11:02 APTT 37 SECONDS (21-34) H 06/15/18 11:02 Assessment and Plan - Assessment and Plan (Free Text) Assessment: Patient seen and evaluated personally by me. Plan of care d/w the bilingual medical receptionist and as documented
--- NOTE | 2018-06-16 11:46 | CARD ---
APPROVED REPORT Date of service: 06/15/2018 EKG Measurement Heart [id number] <Conclusion> Normal sinus rhythm Cannot rule out Anterior infarct, age undetermined Abnormal ECG
--- NOTE | 2018-06-16 12:19 | VASCLAB ---
Date of service: 06/15/2018 PROCEDURE: Carotid Duplex Exam. HISTORY: Dizziness COMPARISON: None available. TECHNIQUE: Grayscale and duplex Doppler evaluation of the cervical carotid and vertebral arteries were performed. The common carotid, carotid bifurcations and cervical Internal Carotid Artery (ICA) and proximal External Carotid Artery (ECA) were evaluated. The vertebral arteries were evaluated for gross patency and flow direction. Report prepared by RICK Leos FINDINGS: RIGHT CAROTID ARTERIES: 1. Common Carotid Artery: No significant focal plaque formation of the right common carotid artery. Maximum Peak Systolic velocity: 68 cm/sec: End-diastolic velocity 10 cm/sec. 2. Carotid Bifurcation: plaque formation. Maximum Peak Systolic velocity: 32 cm/sec: End-diastolic velocity 0 cm/sec. 3. Internal Carotid Artery: Plaque description: Heterogeneous 3.1. Proximal Segment: Peak systolic velocity 53 cm/sec: End-diastolic velocity 14 cm/sec - % stenosis 0-15% 3.2. Middle Segment: Peak systolic velocity 65 cm/sec: End-diastolic velocity 22 cm/sec - % stenosis 0-15% 3.3. Distal Segment: Peak systolic velocity 36 cm/sec: End-diastolic velocity 13 cm/sec - % stenosis 0-15% 4. External Carotid Artery: No significant focal plaque formation. Peak systolic velocity 88 cm/sec 5. ICA/CCA Ratio: 1.5 LEFT CAROTID ARTERIES: 1. Common Carotid Artery: No significant focal plaque formation of the left common carotid artery. Maximum Peak Systolic velocity: 57 cm/sec: End-diastolic velocity 9 cm/sec. 2. Carotid Bifurcation: plaque formation. Maximum Peak Systolic velocity: 28 cm/sec: End-diastolic velocity 0 cm/sec. 3. Internal Carotid Artery: Plaque description: 3.1. Proximal Segment: Peak systolic velocity 39 cm/sec: End-diastolic velocity 11 cm/sec - % stenosis 0-15% 3.2. Middle Segment: Peak systolic velocity 51 cm/sec: End-diastolic velocity 14 cm/sec - % stenosis 0-15% 3.3. Distal Segment: Peak systolic velocity 58 cm/sec: End-diastolic velocity 19 cm/sec - % stenosis 0-15% 4. External Carotid Artery: No significant focal plaque formation. Peak systolic velocity 50 cm/sec 5. ICA/CCA Ratio: 1.5 VERTEBRAL ARTERIES: 1. Right Vertebral Artery: The right vertebral artery flow direction is antegrade. 2. Left Vertebral Artery: The left vertebral artery flow direction is antegrade. OTHER FINDINGS: 1. Right Brachial Blood pressure: 110/80 mmHg. 2. Left Brachial Blood pressure: 120/60 mmHg. IMPRESSION: RIGHT: Duplex scan does not suggest hemodynamically significant stenosis of the right extracranial carotid arteries. LEFT: Duplex scan does not suggest hemodynamically significant stenosis of the left extracranial carotid arteries.
--- NOTE | 2018-06-16 12:51 | MRI ---
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 TECHNIQUE: Multiplanar, multisequence MR images of the brain were obtained without intravenous contrast enhancement. FINDINGS: This study is limited by motion artifact. HEMORRHAGE: No acute parenchymal, subarachnoid or extra-axial hemorrhage. No evidence of hemosiderin deposition is identified on gradient echo weighted sequence. DWI: No evidence of an acute or early subacute infarction. BRAIN PARENCHYMA: Mild chronic periventricular white matter ischemic changes. Moderate- fairly significant generalized volume loss. No obvious parenchymal nor extra-axial masses or collections seen on this noncontrast study. VENTRICLES: No obstructive hydrocephalus. CRANIUM: Unremarkable. ORBITS: Left sided cataract surgery PARANASAL SINUSES/MASTOIDS: . Minor mucosal thickening seen within the maxillary sinuses with questionable small bilateral fluid levels. Minimal mucosal thickening also seen in the ethmoid air complex extending superiorly into the frontal sinus. Minimal mucosal thickening sphenoid sinus. Levels VASCULAR SYSTEM: The visualized vascular flow voids at skull base patent. OTHER FINDINGS: None. IMPRESSION: Limited motion degraded study. Mild chronic periventricular white matter ischemic changes. Moderate-fairly significant generalized volume loss.
[2018-06-16] MEDS: Rosuvastatin Calcium 2.5 mg Tab PO SCH (21:44)
[2018-06-17] MEDS: Azithromycin 500 MG in Sodium Chloride 0.9% 250 ML IVPB SCH (00:15)
[2018-06-17] MEDS: Levothyroxine 25 MCG TAB PO SCH (05:39)
[2018-06-17] MEDS: (Novolog) Insulin Aspart, Recombinant 100 u/ml 10 ml vial SC SCH ×4 (08:24→22:28)
--- NOTE | 2018-06-17 09:19 | PN ---
DATE: 06/17/2018 TIME OF EVALUATION: 07:00 a.m. NEUROLOGICAL PROBLEM: Vertebrobasilar insufficiency superimposed, possible drop attack. PHYSICAL EXAMINATION: VITAL SIGNS: Blood pressure 121/80, 65, mean arterial pressure of 83,respiratory rate 18, temperature 99.4, pulse rate is 79 and regular. The patient is arousable on calling his first name. He denies any dizziness for the last 48-hour period. He has been ambulating on his own. The patient is afebrile and cough is also much decreased with current medication. His MRI brain has been reviewed, atrophy with small vessel disease. The patient is placed on clopidogrel. He is tolerating good. Recommended electroencephalogram is still pending. If the patient is medically stable, the patient can be discharged and should follow up with me as outpatient. Gilbert Petit MD
[2018-06-17] MEDS ORDERED: Influenza Vaccine 60 mcg/0.5 mL SYR (4YR UP) IM ONE ×2 (12:00→18:00)
[2018-06-17] MEDS ORDERED: Pneumococcal 23-Valent Vaccine IM ONE ×2 (12:00→18:00)
--- NOTE | 2018-06-17 15:41 | CP.PCM.PN ---
<Taylor Christie - Last Filed: 06/17/18 17:48> Subjective - Date & Time of Evaluation Date of Evaluation: 06/17/18 Time of Evaluation: 10:00 - Subjective Subjective: Cardiology Progress Note for Dr. Oneal: Patient was seen and examined at bedside in the AM. Patient states he is feeling well. Patient denies chest pain, palpitations, shortness of breath, diarrhea, constipation, fever, chills, nausea or vomiting. Objective - Vital Signs/Intake and Output Vital Signs (last 24 hours): Temp Pulse Resp BP Pulse Ox 98.7 F 81 18 126/78 96 06/17/18 07:02 06/17/18 07:02 06/17/18 07:02 06/17/18 07:02 06/17/18 07:02 - Medications Medications: Current Medications Albuterol/Ipratropium (Duoneb 3 Mg/0.5 Mg (3 Ml) Ud) 3 ml INH RQ8 PRN PRN Reason: cough/wheezing/sob Clopidogrel Bisulfate (Plavix) 75 mg PO DAILY [facility] Last Admin: 06/17/18 10:18 Dose: 75 mg Cyanocobalamin (Vitamin B12 1000 Mcg/Ml Inj) 1,000 mcg IM DAILY [facility] Stop: 06/19/18 23:59 Last Admin: 06/17/18 10:20 Dose: 1,000 mcg Dextrose (Dextrose 50% Inj) 0 ml IV STAT PRN; Protocol PRN Reason: Hypoglycemia Protocol Dextrose (Glutose 15) 0 gm PO ONCE PRN; Protocol PRN Reason: Hypoglycemia Protocol Famotidine (Pepcid) 20 mg PO DAILY [facility] Last Admin: 06/17/18 10:21 Dose: 20 mg Glucagon (Glucagen Diagnostic Kit) 0 mg IM STAT PRN; Protocol PRN Reason: Hypoglycemia Protocol Heparin Sodium (Porcine) (Heparin) 5,000 units SC Q8 [facility] Last Admin: 06/17/18 13:59 Dose: 5,000 units Azithromycin 500 mg/ Sodium (Chloride) 250 mls @ 250 mls/hr IVPB Q24H [facility]; Protocol Last Admin: 06/17/18 00:15 Dose: 250 mls/hr Ceftriaxone Sodium 1 gm/ (Sodium Chloride) 100 mls @ 100 mls/hr IVPB DAILY [facility]; Protocol Last Admin: 06/17/18 10:26 Dose: 100 mls/hr Dextrose (Dextrose 5% In Water 1000 Ml) 1,000 mls @ 0 mls/hr IV .Q0M PRN; Protocol PRN Reason: Hypoglycemia Protocol Influenza Virus Vaccine (Flucelvax Quad 5040-5603 Syr) 60 mcg IM .ONCE ONE Stop: 06/17/18 18:01 Insulin Aspart (Novolog) 0 unit SC [facility]; Protocol Last Admin: 06/17/18 12:43 Dose: 4 unit Levothyroxine Sodium (Synthroid) 25 mcg PO DAILY@0630 [facility] Last Admin: 06/17/18 05:39 Dose: 25 mcg Lisinopril (Zestril) 2.5 mg PO DAILY [facility] Last Admin: 06/17/18 10:18 Dose: 2.5 mg Pneumococcal Polyvalent Vaccine (Pneumovax 23 Vaccine) 0.5 ml IM .ONCE ONE Stop: 06/17/18 18:01 Promethazine HCl (Phenergan Syrup) 6.25 mg PO Q6 PRN PRN Reason: Cough Rosuvastatin Calcium (Crestor) 2.5 mg PO HS [facility] Last Admin: 06/16/18 21:44 Dose: 2.5 mg Thiamine HCl (Vitamin B1 Tab) 100 mg PO DAILY [facility] Last Admin: 06/17/18 10:18 Dose: 100 mg - Labs Labs: 06/16/18 07:43 06/16/18 07:43 PT 12.7 SECONDS (9.7-12.2) H 06/15/18 11:02 INR 1.2 06/15/18 11:02 APTT 37 SECONDS (21-34) H 06/15/18 11:02 - Constitutional Appears: No Acute Distress - Head Exam Head Exam: ATRAUMATIC, NORMAL INSPECTION - Eye Exam Eye Exam: EOMI, Normal appearance - ENT Exam ENT Exam: Mucous Membranes Moist - Respiratory Exam Respiratory Exam: Clear to Ausculation Bilateral, NORMAL BREATHING PATTERN - Cardiovascular Exam Cardiovascular Exam: REGULAR RHYTHM, +S1, +S2 - GI/Abdominal Exam GI & Abdominal Exam: Soft, Normal Bowel Sounds. absent: Tenderness - Extremities Exam Extremities Exam: Normal Inspection - Neurological Exam Neurological Exam: Alert, Awake, Oriented x3 - Psychiatric Exam Psychiatric exam: Normal Affect - Skin Skin Exam: Normal Color Assessment and Plan - Assessment and Plan (Free Text) Assessment: 68 year old male with past medical history of HTN, Diabetes and BPH presented to the ER on 06/14/18 for dizziness. Dizziness - resolved possibly secondary to hypoglycemia - Trop x3 negative - Lipid panel: Total Cholesterol 99; LDL 74; HDL 25; Triglycerides 106; hA1c 8.4 - ECHO (06/15/18): reviewed by Dr. Oneal - normal LV function; moderate concentric left ventricular hypertrophy - CT Angio: No large central or segmental pulmonary embolus. - Carotid Doppler: Negative - Neuro Team Consulted - Meera Stress Test: Reviewed by Dr. Oneal - No stress induced ischemia; EF 71-76% No further cardiac work up recommended at this time. Case discussed with Dr. Jm Christie PGY-2 <Paolo Oneal - Last Filed: 06/18/18 00:09> Objective - Vital Signs/Intake and Output Vital Signs (last 24 hours): Temp Pulse Resp BP Pulse Ox 98.3 F 76 20 118/71 96 06/17/18 15:00 06/17/18 15:00 06/17/18 15:00 06/17/18 15:00 06/17/18 15:00 - Medications Medications: Current Medications Albuterol/Ipratropium (Duoneb 3 Mg/0.5 Mg (3 Ml) Ud) 3 ml INH RQ8 PRN PRN Reason: cough/wheezing/sob Clopidogrel Bisulfate (Plavix) 75 mg PO DAILY [facility] Last Admin: 06/17/18 10:18 Dose: 75 mg Cyanocobalamin (Vitamin B12 1000 Mcg/Ml Inj) 1,000 mcg IM DAILY [facility] Stop: 06/19/18 23:59 Last Admin: 06/17/18 10:20 Dose: 1,000 mcg Dextrose (Dextrose 50% Inj) 0 ml IV STAT PRN; Protocol PRN Reason: Hypoglycemia Protocol Dextrose (Glutose 15) 0 gm PO ONCE PRN; Protocol PRN Reason: Hypoglycemia Protocol Famotidine (Pepcid) 20 mg PO DAILY [facility] Last Admin: 06/17/18 10:21 Dose: 20 mg Glucagon (Glucagen Diagnostic Kit) 0 mg IM STAT PRN; Protocol PRN Reason: Hypoglycemia Protocol Heparin Sodium (Porcine) (Heparin) 5,000 units SC Q8 [facility] Last Admin: 06/17/18 21:28 Dose: 5,000 units Azithromycin 500 mg/ Sodium (Chloride) 250 mls @ 250 mls/hr IVPB Q24H [facility]; P rotocol Last Admin: 06/17/18 00:15 Dose: 250 mls/hr Ceftriaxone Sodium 1 gm/ (Sodium Chloride) 100 mls @ 100 mls/hr IVPB DAILY [facility]; Protocol Last Admin: 06/17/18 10:26 Dose: 100 mls/hr Dextrose (Dextrose 5% In Water 1000 Ml) 1,000 mls @ 0 mls/hr IV .Q0M PRN; Protocol PRN Reason: Hypoglycemia Protocol Insulin Aspart (Novolog) 0 unit SC ACHS [facility]; Protocol Last Admin: 06/17/18 22:28 Dose: Not Given Levothyroxine Sodium (Synthroid) 25 mcg PO DAILY@0630 [facility] Last Admin: 06/17/18 05:39 Dose: 25 mcg Lisinopril (Zestril) 2.5 mg PO DAILY [facility] Last Admin: 06/17/18 10:18 Dose: 2.5 mg Promethazine HCl (Phenergan Syrup) 6.25 mg PO Q6 PRN PRN Reason: Cough Rosuvastatin Calcium (Crestor) 2.5 mg PO HS [facility] Last Admin: 06/17/18 21:28 Dose: 2.5 mg Thiamine HCl (Vitamin B1 Tab) 100 mg PO DAILY [facility] Last Admin: 06/17/18 10:18 Dose: 100 mg - Labs Labs: 06/16/18 07:43 06/16/18 07:43 PT 12.7 SECONDS (9.7-12.2) H 06/15/18 11:02 INR 1.2 06/15/18 11:02 APTT 37 SECONDS (21-34) H 06/15/18 11:02 Assessment and Plan - Assessment and Plan (Free Text) Assessment: Patient seen and evaluated personally by me. Plan of care d/w the the resident and as documented
[2018-06-17] MEDS: Rosuvastatin Calcium 2.5 mg Tab PO SCH (21:28)
[2018-06-18] MEDS: Azithromycin 500 MG in Sodium Chloride 0.9% 250 ML IVPB SCH (01:03)
--- NOTE | 2018-06-18 05:45 | CARD ---
APPROVED REPORT Date of service: 06/16/2018 Protocol: LEXISCAN Test Type: LEXISCAN STRESS Test Indications: PNEUMONIA DIZZINESS Target HR: 151 bpm Resting ECG: NSR Resting Heart Rate: 83 bpm Resting Blood Pressure: 124/84mmHg submaximum (85%): 128 bpm TEST SUMMARY [id number]:01..1.092/.0. PREINFSNHYPERV.11:[id number]/84.0. INFUSIONDOSE 100:300.00.01.091/.1. NBQRMZGES88:280.00..[id number]/80.1. PROCEDURE Pharmacologic stress testing was performed using 0.4mg per 5ml of regadenoson given intravenously over 7-10 seconds. POST EXERCISE Reason for Termination: Protocol Completed Target HR: No Max HR: 91 bpm 74% of Maximum Predicted HR: 151 bpm Exercise duration: 00:30 min:sec, 0 Stage Exercise capacity: 1.0METs Max Blood Pressure: 148/80mmHg Blood Pressure response to exercise: normal resting BP - appropriate response Heart Rate response to exercise: appropriate Chest Pain: No, none Angina index: 0 Arrhythmia: Yes, VPB ST Change: No, none Deviation: 0 mm INTERPRETATION Stress EKG Conclusion: NEGATIVE LEXISCAN STRESS TEST VPB NORMAL BP RESPONSE TO LEXISCAN NUCLEAR STUDIES TO BE READ SEPARATELY EXAM: Myocardial Perfusion STRESS/REST Imaging Protocol The imaging protocol used to acquire images was Stress Tc-99m/rest Tc-99m 1 day Stress Spect myocardial perfusion imaging was performed in supine position 42 minutes following the injection of 13 mCi of Tc-99 Myoview. Gated Rest Spect was performed 43 minutes after intravenous 32.7 mCi Tc-99 Myoview injection. The images were gated to evaluate regional wall motion and calculate ventricular ejection fraction.Images were reconstructed using backfilter projection method in short horizontal and verticle long axis. Spect slices were generated. RESTING DATA EDV62.32vnIA1.30L/min ESV18.00mlMyocardial Pkae662.00g Av. Heart Rate74.00bpm EF71.00% STRESS DATA EDV55.56rhMI3.50L/min ESV13.00mlMyocardial Zrxk372.00g EF76.00% Regional WT score at stress:0.00 Regional WM score at stress:0.00 Summed WT score at stress:4.00 Av. Heart Rate82.00bpmSummed WM score at stress:0.00 LV Perf. Quant 17 Seg. SSS3.00 17 Seg. SRS5.00 17 Seg. SDS0.00 Stress Defect Extent (% LAD)0.00Rest Defect Extent (% LAD)0.00Rev. Defect Extent (% LAD)0.00 Stress Defect Extent (% LCX)32.50Rest Defect Extent (% LCX)40.00Rev. Defect Extent (% LCX)0.00 Stress Defect Extent (% RCA)0.00Rest Defect Extent (% RCA)0.00Rev. Defect Extent (% RCA)0.00 Stress Defect Extent (% YARI)6.10Rest Defect Extent (% YARI)8.00Rev. Defect Extent (% YARI)0.00 Other Information Quality:Good IMPRESSION Normal Myocardial Perfusion exercise stress study Left Ventricle LV Function:Left ventricle systolic function is normal. The Ejection Fraction is >55%. Metabolism/Perfusion There are no perfusion/metabolism defects. Conclusion 1. Normal Lexiscan Nuclear stress test. Normal EF
[2018-06-18] MEDS: Levothyroxine 25 MCG TAB PO SCH (05:49)
[2018-06-18] MEDS: (Novolog) Insulin Aspart, Recombinant 100 u/ml 10 ml vial SC SCH ×4 (08:26→22:16)
--- NOTE | 2018-06-18 19:22 | CP.PCM.PN ---
Subjective - Date & Time of Evaluation Date of Evaluation: 06/18/18 Time of Evaluation: 19:21 - Subjective Subjective: pt is doing well comfortable no fever will d/c home in am, Objective - Vital Signs/Intake and Output Vital Signs (last 24 hours): Temp Pulse Resp BP Pulse Ox 98.2 F 70 20 124/76 92 L 06/18/18 16:16 06/18/18 16:16 06/18/18 16:16 06/18/18 16:16 06/18/18 16:16 - Medications Medications: Current Medications Albuterol/Ipratropium (Duoneb 3 Mg/0.5 Mg (3 Ml) Ud) 3 ml INH RQ8 PRN PRN Reason: cough/wheezing/sob Clopidogrel Bisulfate (Plavix) 75 mg PO DAILY [facility] Last Admin: 06/18/18 09:33 Dose: 75 mg Cyanocobalamin (Vitamin B12 1000 Mcg/Ml Inj) 1,000 mcg IM DAILY [facility] Stop: 06/19/18 23:59 Last Admin: 06/18/18 09:33 Dose: 1,000 mcg Dextrose (Dextrose 50% Inj) 0 ml IV STAT PRN; Protocol PRN Reason: Hypoglycemia Protocol Dextrose (Glutose 15) 0 gm PO ONCE PRN; Protocol PRN Reason: Hypoglycemia Protocol Famotidine (Pepcid) 20 mg PO DAILY [facility] Last Admin: 06/18/18 09:33 Dose: 20 mg Glucagon (Glucagen Diagnostic Kit) 0 mg IM STAT PRN; Protocol PRN Reason: Hypoglycemia Protocol Heparin Sodium (Porcine) (Heparin) 5,000 units SC Q8 [facility] Last Admin: 06/18/18 13:44 Dose: 5,000 units Azithromycin 500 mg/ Sodium (Chloride) 250 mls @ 250 mls/hr IVPB Q24H JOANN; Protocol Last Admin: 06/18/18 01:03 Dose: 250 mls/hr Ceftriaxone Sodium 1 gm/ (Sodium Chloride) 100 mls @ 100 mls/hr IVPB DAILY [facility]; Protocol Last Admin: 06/18/18 09:34 Dose: 100 mls/hr Dextrose (Dextrose 5% In Water 1000 Ml) 1,000 mls @ 0 mls/hr IV .Q0M PRN; Protocol PRN Reason: Hypoglycemia Protocol Insulin Aspart (Novolog) 0 unit SC ACHS [facility]; Protocol Last Admin: 06/18/18 17:20 Dose: 4 unit Levothyroxine Sodium (Synthroid) 25 mcg PO DAILY@0630 [facility] Last Admin: 06/18/18 05:49 Dose: 25 mcg Lisinopril (Zestril) 2.5 mg PO DAILY [facility] Last Admin: 06/18/18 09:34 Dose: 2.5 mg Promethazine HCl (Phenergan Syrup) 6.25 mg PO Q6 PRN PRN Reason: Cough Rosuvastatin Calcium (Crestor) 2.5 mg PO HS [facility] Last Admin: 06/17/18 21:28 Dose: 2.5 mg Thiamine HCl (Vitamin B1 Tab) 100 mg PO DAILY [facility] Last Admin: 06/18/18 09:34 Dose: 100 mg - Labs Labs: 06/16/18 07:43 06/16/18 07:43 PT 12.7 SECONDS (9.7-12.2) H 06/15/18 11:02 INR 1.2 06/15/18 11:02 APTT 37 SECONDS (21-34) H 06/15/18 11:02
[2018-06-18] MEDS: Rosuvastatin Calcium 2.5 mg Tab PO SCH (21:04)
--- NOTE | 2018-06-18 21:52 | CP.PCM.PN ---
Subjective - Date & Time of Evaluation Date of Evaluation: 06/18/18 Time of Evaluation: 21:52 - Subjective Subjective: Patient seen and evaluated Feels better Denies chest pain and dyspnea Possible d/c in am Objective - Vital Signs/Intake and Output Vital Signs (last 24 hours): Temp Pulse Resp BP Pulse Ox 98.2 F 70 20 124/76 92 L 06/18/18 16:16 06/18/18 16:16 06/18/18 16:16 06/18/18 16:16 06/18/18 16:16 - Medications Medications: Current Medications Albuterol/Ipratropium (Duoneb 3 Mg/0.5 Mg (3 Ml) Ud) 3 ml INH RQ8 PRN PRN Reason: cough/wheezing/sob Clopidogrel Bisulfate (Plavix) 75 mg PO DAILY [facility] Last Admin: 06/18/18 09:33 Dose: 75 mg Cyanocobalamin (Vitamin B12 1000 Mcg/Ml Inj) 1,000 mcg IM DAILY [facility] Stop: 06/19/18 23:59 Last Admin: 06/18/18 09:33 Dose: 1,000 mcg Dextrose (Dextrose 50% Inj) 0 ml IV STAT PRN; Protocol PRN Reason: Hypoglycemia Protocol Dextrose (Glutose 15) 0 gm PO ONCE PRN; Protocol PRN Reason: Hypoglycemia Protocol Famotidine (Pepcid) 20 mg PO DAILY [facility] Last Admin: 06/18/18 09:33 Dose: 20 mg Glucagon (Glucagen Diagnostic Kit) 0 mg IM STAT PRN; Protocol PRN Reason: Hypoglycemia Protocol Heparin Sodium (Porcine) (Heparin) 5,000 units SC Q8 [facility] Last Admin: 06/18/18 21:04 Dose: 5,000 units Azithromycin 500 mg/ Sodium (Chloride) 250 mls @ 250 mls/hr IVPB Q24H [facility]; Protocol Last Admin: 06/18/18 01:03 Dose: 250 mls/hr Ceftriaxone Sodium 1 gm/ (Sodium Chloride) 100 mls @ 100 mls/hr IVPB DAILY [facility]; Protocol Last Admin: 06/18/18 09:34 Dose: 100 mls/hr Dextrose (Dextrose 5% In Water 1000 Ml) 1,000 mls @ 0 mls/hr IV .Q0M PRN; Protocol PRN Reason: Hypoglycemia Protocol Insulin Aspart (Novolog) 0 unit SC ACHS [facility]; Protocol Last Admin: 06/18/18 17:20 Dose: 4 unit Levothyroxine Sodium (Synthroid) 25 mcg PO DAILY@0630 [facility] Last Admin: 06/18/18 05:49 Dose: 25 mcg Lisinopril (Zestril) 2.5 mg PO DAILY [facility] Last Admin: 06/18/18 09:34 Dose: 2.5 mg Promethazine HCl (Phenergan Syrup) 6.25 mg PO Q6 PRN PRN Reason: Cough Rosuvastatin Calcium (Crestor) 2.5 mg PO HS [facility] Last Admin: 06/18/18 21:04 Dose: 2.5 mg Thiamine HCl (Vitamin B1 Tab) 100 mg PO DAILY [facility] Last Admin: 06/18/18 09:34 Dose: 100 mg - Labs Labs: 06/16/18 07:43 06/16/18 07:43 PT 12.7 SECONDS (9.7-12.2) H 06/15/18 11:02 INR 1.2 06/15/18 11:02 APTT 37 SECONDS (21-34) H 06/15/18 11:02
[2018-06-19] MEDS: Azithromycin 500 MG in Sodium Chloride 0.9% 250 ML IVPB SCH (00:42)
[2018-06-19 04:15] VITALS: O2SAT 97
[2018-06-19] MEDS: Levothyroxine 25 MCG TAB PO SCH (06:05)
[2018-06-19 08:15] VITALS: BP 123/79; PULSE 72; RESP 18; TEMP 98.9
--- NOTE | 2018-06-22 08:04 | CP.PCM.PN ---
Subjective - Date & Time of Evaluation Date of Evaluation: 06/17/18 Time of Evaluation: 08:04 - Subjective Subjective: Patient today was seen by neurologist and spring tier. And there was a concern about vertigo, vestibular basilar insufficiency, seizure activities. MRI reveals a small vessel disease. Patient is otherwise feeling well. The blood sugar is somewhat uncontrolled today. On examination: Vital signs Temperature 99.3 pulse 98 respiration 20 blood pressure 120/70 saturation 97% labs reviewed Nonspecific. Patient had an episode of low blood sugar. Being closely monitored. Elevated CPK level noted. Seen by spring tier. We will continue the current treatment. 68-year-old male admitted to the hospital with the syncope, fall, possible vert ebral basilar insufficiency. Glucose hypoglycemia. Diabetes, diabetic neuropathy. We will continue the current treatment and will follow the patient Workup is so far negative. We will continue to monitor. Discharge plan Objective - Vital Signs/Intake and Output Vital Signs (last 24 hours): Temp Pulse Resp BP Pulse Ox 98.9 F 72 18 123/79 97 06/19/18 07:00 06/19/18 07:00 06/19/18 07:00 06/19/18 07:00 06/19/18 07:00 - Labs Labs: 06/16/18 07:43 06/16/18 07:43 PT 12.7 SECONDS (9.7-12.2) H 06/15/18 11:02 INR 1.2 06/15/18 11:02 APTT 37 SECONDS (21-34) H 06/15/18 11:02
--- NOTE | 2018-06-22 08:04 | CP.PCM.PN ---
Subjective - Date & Time of Evaluation Date of Evaluation: 06/16/18 Time of Evaluation: 08:04 - Subjective Subjective: Patient today was seen by neurologist and head waiter. And there was a concern about vertigo, vestibular basilar insufficiency, seizure activities. MRI reveals a small vessel disease. Patient is otherwise feeling well. The blood sugar is somewhat uncontrolled today. On examination: Vital signs Temperature 99.3 pulse 98 respiration 20 blood pressure 120/70 saturation 97% labs reviewed Nonspecific. Patient had an episode of low blood sugar. Being closely monitored. Elevated CPK level noted. Seen by head waiter. We will continue the current treatment. 68-year-old male admitted to the hospital with the syncope, fall, possible vert ebral basilar insufficiency. Glucose hypoglycemia. Diabetes, diabetic neuropathy. We will continue the current treatment and will follow the patient Objective - Vital Signs/Intake and Output Vital Signs (last 24 hours): Temp Pulse Resp BP Pulse Ox 98.9 F 72 18 123/79 97 06/19/18 07:00 06/19/18 07:00 06/19/18 07:00 06/19/18 07:00 06/19/18 07:00 - Labs Labs: 06/16/18 07:43 06/16/18 07:43 PT 12.7 SECONDS (9.7-12.2) H 06/15/18 11:02 INR 1.2 06/15/18 11:02 APTT 37 SECONDS (21-34) H 06/15/18 11:02
--- NOTE | 2018-06-22 08:04 | CP.PCM.DIS ---
Provider - Provider Date of Admission: 06/14/18 23:44 Attending physician: Ayaz Youssef MD Consults: 06/15/18 08:28 Cardiology Consult Routine Comment: Consulting Provider: Paolo Oneal Consulting Physician: Paolo Oneal Reason for Consult: dizzziness Neurology Consult Routine Comment: Consulting Provider: Gilbert Petit Consulting Physician: Gilbert Petit Reason for Consult: dizziness Time Spent in preparation of Discharge (in minutes): 45 Hospital Course - Lab Results Lab Results: Micro Results 06/15/18 00:11 Blood Blood Culture - Final NO GROWTH AFTER 5 DAYS 06/15/18 00:11 Blood Gram Stain - Final TEST NOT PERFORMED 06/15/18 00:10 Blood Blood Culture - Final NO GROWTH AFTER 5 DAYS 06/15/18 00:10 Blood Gram Stain - Final TEST NOT PERFORMED Most Recent Lab Values WBC 4.1 K/uL (4.8-10.8) L D 06/16/18 07:43 RBC 4.54 Mil/uL (4.40-5.90) 06/16/18 07:43 Hgb 14.2 g/dL (12.0-18.0) D 06/16/18 07:43 Hct 40.9 % (35.0-51.0) 06/16/18 07:43 MCV 90.2 fL (80.0-94.0) 06/16/18 07:43 MCH 31.3 pg (27.0-31.0) H 06/16/18 07:43 MCHC 34.7 g/dL (33.0-37.0) 06/16/18 07:43 RDW 13.1 % (11.5-14.5) 06/16/18 07:43 Plt Count 206 K/uL (130-400) 06/16/18 07:43 MPV 8.3 fL (7.2-11.7) 06/16/18 07:43 Neut % (Auto) 64.7 % (50.0-75.0) 06/16/18 07:43 Lymph % (Auto) 23.5 % (20.0-40.0) 06/16/18 07:43 [place] % (Auto) 10.7 % (0.0-10.0) H 06/16/18 07:43 Eos % (Auto) 0.4 % (0.0-4.0) 06/16/18 07:43 Baso % (Auto) 0.7 % (0.0-2.0) 06/16/18 07:43 Neut # (Auto) 2.7 K/uL (1.8-7.0) 06/16/18 07:43 Lymph # (Auto) 1.0 K/uL (1.0-4.3) 06/16/18 07:43 [place] # (Auto) 0.4 K/uL (0.0-0.8) 06/16/18 07:43 Eos # (Auto) 0.0 K/uL (0.0-0.7) 06/16/18 07:43 Baso # (Auto) 0.0 K/uL (0.0-0.2) 06/16/18 07:43 Neutrophils % (Manual) 72 % (50-75) 06/14/18 22:53 Band Neutrophils % 9 % (0-2) H 06/14/18 22:53 Lymphocytes % (Manual) 9 % (20-40) L 06/14/18 22:53 Monocytes % (Manual) 10 % (0-10) 06/14/18 22:53 Hypersegmented Polys Present 06/14/18 22:53 Smudge Cells Present 06/14/18 22:53 Platelet Estimate Normal (NORMAL) 06/14/18 22:53 Large Platelets Present 06/14/18 22:53 Hypochromasia (manual) Slight 06/14/18 22:53 Poikilocytosis (manual Slight 06/14/18 22:53 Anisocytosis (manual) Slight 06/14/18 22:53 Spherocytes Slight 06/14/18 22:53 PT 12.7 SECONDS (9.7-12.2) H 06/15/18 11:02 INR 1.2 06/15/18 11:02 APTT 37 SECONDS (21-34) H 06/15/18 11:02 Sodium 136 mmol/L (132-148) 06/16/18 07:43 Potassium 3.9 mmol/L (3.6-5.2) 06/16/18 07:43 Chloride 101 mmol/L (98-107) 06/16/18 07:43 Carbon Dioxide 29 mmol/L (22-30) 06/16/18 07:43 Anion Gap 10 (10-20) 06/16/18 07:43 BUN 7 mg/dL (9-20) L 06/16/18 07:43 Creatinine 0.6 mg/dL (0.8-1.5) L 06/16/18 07:43 Est GFR ( Amer) > 60 06/16/18 07:43 Est GFR (Non-Af Amer) > 60 06/16/18 07:43 POC Glucose (mg/dL) 241 mg/dL (65-110) H 06/19/18 06:19 Random Glucose 197 mg/dL (75-110) H D 06/16/18 07:43 Hemoglobin A1c 8.4 % (4.2-6.5) H 06/16/18 07:43 Calcium 8.2 mg/dl (8.6-10.4) L 06/16/18 07:43 Phosphorus 2.5 mg/dL (2.5-4.5) 06/16/18 07:43 Magnesium 1.9 mg/dL (1.6-2.3) 06/16/18 07:43 Total Bilirubin 0.6 mg/dL (0.2-1.3) 06/16/18 07:43 AST 30 U/L (17-59) 06/16/18 07:43 ALT 25 U/L (21-72) 06/16/18 07:43 Alkaline Phosphatase 49 U/L (38-126) 06/16/18 07:43 Total Creatine Kinase 399 U/L (55-170) H 06/15/18 16:47 CK-MB (Mass) 1.98 ng/mL (0.0-3.38) 06/15/18 16:47 Troponin I < 0.0120 ng/mL (0.00-0.120) 06/15/18 16:47 Total Protein 6.7 g/dL (6.3-8.3) 06/16/18 07:43 Albumin 3.8 g/dL (3.5-5.0) 06/16/18 07:43 Globulin 2.9 gm/dL (2.2-3.9) 06/16/18 07:43 Albumin/Globulin Ratio 1.3 (1.0-2.1) 06/16/18 07:43 Triglycerides 106 mg/dL (0-149) 06/16/18 07:43 Cholesterol 99 mg/dL (0-199) 06/16/18 07:43 LDL Cholesterol Direct 74 mg/dL (0-129) 06/16/18 07:43 HDL Cholesterol 25 mg/dL (30-70) L 06/16/18 07:43 Free T4 1.00 ng/dL (0.78-2.19) 06/16/18 07:43 TSH 3rd Generation 10.20 mIU/L (0.46-4.68) H 06/16/18 07:43 - Hospital Course Hospital Course: Chief complaint: Cough and wheezing HPI: 68-year-old male with a history of diabetes came to the emergency room with the symptoms of dizziness for 3 days duration. He is started feeling dizzy while he standing up, and sometimes even at rest it started having. Patient also had episodes of dry cough. Chills noted. He denied any fever, no shortness of breath. Denies any headache. While he was in the emergency room patient was also having episode of high blood pressure and tachycardia. Patient is very compliant with the medications. Past medical history: BPH, diabetes and hypertension Allergy no known drug allergy Personal history: Patient used to be a smoker in the past. Denies any alcohol. Lives with family members. Surgical history none Family history significant for high blood pressure and heart disease Review of system: Patient is having some headache. Minimal dry cough noted. Dizziness present. Low blood sugar this morning noted. No chest pain. On examination: Vital signs are stable otherwise. Mild tachycardia noted. Saturation is 93% in room air Chest good air entry No wheezing noted Regular heart sounds noted Abdomen soft. 1+ pedal edema bilaterally in the legs noted. No calf tenderness noted Patient's labs reviewed Elevated WBC noted Chemistries normal. Blood sugar is on the low side EKG nonspecific tachycardia noted Chest x-ray left lower lung atelectatic changes Assessment and recommendation: 68-year-old male with a history of diabetes hypertension high cholesterol. Admitted with dizziness and tachycardia. Underlying DVT PE cannot be ruled out. Suggested CT scan of the chest with IV contrast Presumptive diagnosis of CAP, on antibiotic. DVT and GI prophylaxis. Glucose monitoring. Neurological, cardiology evaluation and will follow the patient Course in the hospital: Patient was closely monitored. Episode of dizziness and tachycardia. CAT scan of the chest and abdomen negative. Patient also seen by neurologist, blacksmith supervisor. So far the workup is negative. Most likely presyncopal attack, hypoglycemia, diabetes, poorly controlled. patient supposed to be discharged, but he signed AGAINST MEDICAL ADVICE before. I advised him to follow-up with the PMD. Discharge Exam - Head Exam Head Exam: ATRAUMATIC, NORMAL INSPECTION Discharge Plan - Follow Up Plan Condition: GOOD Disposition: AGAINST MEDICAL ADVICE Instructions: Heart Healthy Diet, Diabetes Exchange Diet, Vertigo (a Type of Dizziness) (DC), Pneumonia, Adult (DC), Diabetes Diet Referrals: Ayaz Youssef MD [Staff Provider] -
== END 2018-06-19 09:30 | disposition left against medical advice (07) | DRG 637 ==
LOC: C.ER 22:12 → C.6T 23:44
PROVIDERS: ADMIT Internal Medicine; ATTEND Internal Medicine
DX: E11.649 Type 2 diabetes mellitus with hypoglycemia without coma (principal); J18.9 Pneumonia, unspecified organism; E11.51 Type 2 diabetes mellitus with diabetic peripheral angiopathy without gangrene; E78.00 Pure hypercholesterolemia, unspecified; R55 Syncope and collapse; E11.40 Type 2 diabetes mellitus with diabetic neuropathy, unspecified; G62.9 Polyneuropathy, unspecified; N40.0 Benign prostatic hyperplasia without lower urinary tract symptoms; R56.9 Unspecified convulsions; W18.30XA Fall on same level, unspecified, initial encounter; Z86.73 Personal history of transient ischemic attack (TIA), and cerebral infarction without residual deficits; Z79.4 Long term (current) use of insulin; Z87.891 Personal history of nicotine dependence